=== PATIENT | male | born 1990 | race Caucasian/White ===

== ENCOUNTER 2023-03-22 06:01 | Day surgery (SDC) | payer BC ==
[2023-03-22] MEDS: Lactated Ringers 1,000 ML IV SCH (06:14)
[2023-03-22] MEDS ORDERED: DIPRIVAN 200 MG/20 ML IV ONE (06:56)
[2023-03-22] MEDS ORDERED: SUBLIMAZE 100 MCG/2 ML ONE (06:56)
[2023-03-22] MEDS ORDERED: Versed 2 MG/2 ML Injection ONE (06:57)
[2023-03-22 07:21] VITALS: TEMP 97.3
[2023-03-22 07:26] VITALS: RESP 18
[2023-03-22 07:40] VITALS: BP 120/79; PULSE 80; O2SAT 99
--- NOTE | 2023-03-22 08:41 | OP ---
SURGERY DATE/TIME: 03/22/2023 0708 PREOPERATIVE DIAGNOSIS: Chronic gastroesophageal reflux. POSTOPERATIVE DIAGNOSIS: Mild gastritis and biopsies were obtained to rule out the presence of Helicobacter pylori-type organisms and rule out Manjarrez's. PROCEDURE: Esophagogastroduodenoscopy. SURGEON: Dr. Soto. ANESTHESIA: Medications were given by the anesthesia department. BRIEF HISTORY: The patient is a 32-year-old white male patient presenting now for upper endoscopy evaluation due to the presence of abdominal discomfort and bloating when eating certain foods. The patient reports that it is better controlled as long as he takes Georgina's, this has been going on for the past four months. It was felt the he needed to have endoscopic evaluation. The patient was described the risks of the procedure including the risk of perforation, phlebitis, untoward reaction to medication, bleeding and missed lesions. The patient verbalized his understanding and desired to have the procedure performed. DESCRIPTION OF PROCEDURE: The patient was given the medications by the anesthesia department. He had continuous pulse oximetry, ECG monitoring and intermittent blood pressure monitoring during the examination. He was placed in the left lateral decubitus position. A bite block was placed. The flexible Olympus gastroscope was used to intubate the oropharynx which appeared to be normal. The scope was introduced in the esophagus with ease and the esophagus appeared to be normal to the gastroesophageal junction where mild unusual villous appearing at the gastroesophageal junction. Biopsies were obtained to rule out the presence of Helicobacter pylori-type organisms. The scope was then advanced to the stomach to the antrum. The pylorus was found, intubated and duodenum was inspected and found to be mildly inflamed. No erosions or ulcers were noted. The scope was withdrawn towards the stomach. A retroflex view was obtained of the lesser curvature, fundus and cardia regions of the stomach and again we noted the villous appearance at the gastroesophageal junction. The scope was then redirected towards the gastric antrum and biopsies were obtained to rule out the presence of Helicobacter pylori-type organisms. The scope was then removed from the patient who tolerated the procedure well and was sent back to outpatient recovery in good condition.
== END 2023-03-22 07:44 | disposition home or self-care (01) ==
LOC: SDC 06:01
PROVIDERS: ATTEND Family Medicine
DX: K29.70 Gastritis, unspecified, without bleeding (principal); K21.9 Gastro-esophageal reflux disease without esophagitis
CPT/HCPCS: J2250; J2704; J3010